=== PATIENT | male | born 1975 | race Caucasian/White ===

== ENCOUNTER 2019-04-05 11:04 | Emergency (ER) | payer OTHER ==
[~2019-04-05] VITALS: Ht 182.9 cm; Wt 72.4 kg
[2019-04-05 11:17] VITALS: BP 131/79
--- NOTE | 2019-04-05 11:36 | NUR ---
PT REPORTS N/V, SINUS PRESSURE, MILD FEVER SINCE LAST NIGHT. AMBULATED TO BR WITHOUT DIFFICULTY.
--- NOTE | 2019-04-05 12:10 | NUR ---
D/C INSTRUCTIONS & MEDS RV'WD WITH PT, HE VERBALIZES UNDERSTANDING. RX GIVEN X2. INSTRUCTED PT TO F/U WITH PCP IF SYMPTOMS NOT IMPROVING. PT AMBULATED OUT OF ED WITHOUT DIFFICULTY.
== END 2019-04-05 12:27 | disposition home or self-care (01) ==
LOC: ED 12:00
DX: J01.00 Acute maxillary sinusitis, unspecified (principal); J30.9 Allergic rhinitis, unspecified
CPT/HCPCS: 99283